=== PATIENT | male | born 1960 | race African-American/Black ===

== ENCOUNTER 2020-04-21 06:33 | Emergency (ER) | payer MEDICAID ==
[~2020-04-21] VITALS: Ht 177.8 cm; Wt 91.0 kg
[2020-04-21 08:08] VITALS: BP 136/78
== END 2020-04-21 08:10 | disposition home or self-care (01) ==
LOC: ER 06:33 → EDBD 06:33 → ER 08:10
DX: E11.40 Type 2 diabetes mellitus with diabetic neuropathy, unspecified (principal); G62.9 Polyneuropathy, unspecified; I25.10 Atherosclerotic heart disease of native coronary artery without angina pectoris; Z86.73 Personal history of transient ischemic attack (TIA), and cerebral infarction without residual deficits; Z59.0 Homelessness
CPT/HCPCS: 82962; 99282

== ENCOUNTER 2021-12-15 01:47 | Emergency (ER) | payer MEDICAID ==
[~2021-12-15] VITALS: Ht 170.2 cm; Wt 100.0 kg
[2021-12-15 02:30] VITALS: BP 141/74
== END 2021-12-15 13:26 | disposition home or self-care (01) ==
LOC: ER 01:47
DX: E11.65 Type 2 diabetes mellitus with hyperglycemia (principal)
CPT/HCPCS: 82962; 99283